=== PATIENT | male | born 1960 | race Two or more races ===

== ENCOUNTER 2018-07-03 14:07 | Inpatient (IN) | payer MEDICARE ==
[~2018-07-03] VITALS: Ht 167.6 cm; Wt 59.0 kg
--- NOTE | ~2018-07-03 | HP ---
PATIENT: KEVIN DASH MEDICAL RECORD: [id number] ACCOUNT: [id number] LOCATION:D. 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 He presented to our procedure center at [facility] [place] and is going to have a HemoSplit catheter placed. He is a [facility] patient and not associated with [facility], so we could not run in our unit at [facility]. We will have to admit him as his potassium was 7.1 and CO2 was 12 indicating metabolic acidosis and uremia. PAST MEDICAL HISTORY: 1. ESRD, on dialysis in [place] with failed access. 2. Hypertension. 3. Hyperphosphatemia. 4. Treated TB. 5. Incomplete database as this is a gentleman from [place] dialysis unit. 6. Hyperlipidemia. 7. Hyperkalemia. 8. Anemia of CKD. 9. Diabetes type 2. PAST SURGICAL HISTORY: Dialysis access placement. SOCIAL HISTORY: He is , unknown immigration status, but does dialyze at [place]. FAMILY HISTORY: Noncontributory. No alcohol or illicit drugs and was a former smoker many years ago. ALLERGIES: GABAPENTIN. PHYSICAL EXAMINATION: VITAL SIGNS: He is 142/72, 72 heart rate, 18 respiratory rate, male, in no respiratory distress. HEENT: Extraocular muscles are intact. Cranial nerves II through XII are intact. LUNGS: Do have decreased breath sounds, otherwise clear. ABDOMEN: Nontender. Dialysis access with no sign of infection. New hemodialysis catheter, tunneled. EXTREMITIES: No clubbing, but positive edema. LABORATORY DATA: His BUN was 173, creatinine greater than 20, CO2 12, potassium 7.1, sodium 139, glucose 99. ASSESSMENT AND PLAN: 1. Uremia. He has had a dialysis access placed. I have already talked with the dialysis team and it would be fast if they are be able to get him down to the dialysis unit room or the ICU. 2. Hyperkalemia. We will give him bicarbonate on admission. 3. Diabetes. We will place him on a sliding scale. I do not have a home medication list. HISTORY AND PHYSICAL [id number] KEVIN DASH 4. Hypertension. We will provide him p.r.n. metoprolol until we can obtain the medication list. 5. Metabolic acidosis secondary to renal failure, noncompliance with dialysis due to loss of dialysis access. 6. Previously treated TB. 7. Hyperlipidemia. We will see if he is on a statin. 8. Secondary hyperparathyroidism. 9. Anemia of CKD. PLAN: Please see orders. TRANSINT:[id number] Voice Confirmation ID: [id number] DOCUMENT ID: [id number] ANIL FELTON MD at 1745 CC: [id number] DICTATION DATE: 07/03/18 1146 LABEL DESIGNER: 07/03/18 1206 ADM IN [place] [id number] [place] [address]
[2018-07-03 15:20] VITALS: BP 132/51; BMI 21.0
[2018-07-03 16:35] LABS: BASOPHILS 0.6 % (0-2); EOSINOPHILS 0.7 % (0-7); IMMATURE GRANULOCYTES 0.6 % (0-5); LYMPHOCYTES 7.5 % (15-50); MCH 30.8 pg (26.0-34.0); MCHC 32.7 g/dL (31.0-37.0); MCV 94.1 fL (80.0-100.0); MEAN PLATELET VOLUME 9.3 fL (7.4-10.4); MONOCYTES 6.5 % (2-11); NEUTROPHILS 84.1 % (40-80); PLATELET COUNT 124 10x3/uL (130-400); RDW 13.7 % (11.5-14.5); WBC 7.2 10x3/uL (4.8-10.8)
[2018-07-03 16:52] LABS: ANION GAP 34.3 mmol/L (8-16); CALCIUM 8.7 mg/dL (8.5-10.1); CARBON DIOXIDE 12.8 mmol/L (21.0-32.0)
[2018-07-03 17:01] LABS: CREATININE - SERUM 29.8 mg/dL (0.6-1.3)
[2018-07-03 17:06] LABS: POTASSIUM - SERUM 8.1 mmol/L (3.5-5.1)
[2018-07-03 17:29] LABS: HEMOGLOBIN 5.2 g/dL (13.5-17.5); RBC 1.69 10x6/uL (4.20-6.10)
[2018-07-03 17:31] LABS: HEMATOCRIT 15.9 % (42.0-54.0)
[2018-07-03 20:00] VITALS: BP 187/76
[2018-07-03 23:04] VITALS: BP 184/81
[2018-07-03 23:20] VITALS: BP 182/82
[2018-07-03 23:35] VITALS: BP 189/81
[2018-07-03 23:50] VITALS: BP 186/78
[2018-07-04] VITALS (11 sets, daily range): BP systolic 154–201; BP diastolic 68–84; Ht 167.6 cm; Wt 59.0 kg
[2018-07-04 06:00] LABS: BASOPHILS 0.5 % (0-2); EOSINOPHILS 3.5 % (0-7); IMMATURE GRANULOCYTES 0.5 % (0-5); LYMPHOCYTES 5.4 % (15-50); MCHC 35.8 g/dL (31.0-37.0); MONOCYTES 13.2 % (2-11); NEUTROPHILS 76.9 % (40-80); PLATELET COUNT 127 10x3/uL (130-400); RDW 15.6 % (11.5-14.5); WBC 5.7 10x3/uL (4.8-10.8)
[2018-07-04 06:12] LABS: PHOSPHOROUS 7.9 mg/dL (2.5-4.9)
[2018-07-04 06:15] LABS: CREATININE - SERUM 16.5 mg/dL (0.6-1.3)
[2018-07-04 06:16] LABS: ANION GAP 20.6 mmol/L (8-16); CARBON DIOXIDE 21.1 mmol/L (21.0-32.0); POTASSIUM - SERUM 4.7 mmol/L (3.5-5.1)
[2018-07-04 06:20] LABS: HEMATOCRIT 25.4 % (42.0-54.0); HEMOGLOBIN 9.1 g/dL (13.5-17.5); MCV 86.4 fL (80.0-100.0); RBC 2.94 10x6/uL (4.20-6.10)
[2018-07-04 16:16] LABS: HEPATITIS C ANTIBODY 0.1 (0.0-0.9)
[2018-07-05] VITALS: BP 165/68
[2018-07-05 04:00] VITALS: BP 145/91
[2018-07-05 05:20] LABS: BASOPHILS 0.6 % (0-2); EOSINOPHILS 3.9 % (0-7); HEMATOCRIT 25.4 % (42.0-54.0); HEMOGLOBIN 8.5 g/dL (13.5-17.5); IMMATURE GRANULOCYTES 0.4 % (0-5); LYMPHOCYTES 6.5 % (15-50); MCHC 33.5 g/dL (31.0-37.0); MCV 86.7 fL (80.0-100.0); MEAN PLATELET VOLUME 9.6 fL (7.4-10.4); MONOCYTES 12.5 % (2-11); NEUTROPHILS 76.1 % (40-80); PLATELET COUNT 128 10x3/uL (130-400); RBC 2.93 10x6/uL (4.20-6.10); RDW 15.3 % (11.5-14.5); WBC 6.9 10x3/uL (4.8-10.8)
[2018-07-05 05:57] LABS: ALBUMIN 2.8 g/dL (3.4-5.0); ANION GAP 20.7 mmol/L (8-16); BILIRUBIN - DIRECT 0.09 mg/dL (0.00-0.30); BILIRUBIN - INDIRECT 0.23 mg/dL (0.00-1.00); BILIRUBIN - TOTAL 0.32 mg/dL (0.2-1.3); CALCIUM 7.9 mg/dL (8.5-10.1); CARBON DIOXIDE 23.4 mmol/L (21.0-32.0); CREATININE - SERUM 19.7 mg/dL (0.6-1.3); POTASSIUM - SERUM 5.1 mmol/L (3.5-5.1); PROTEIN - SERUM 6.1 g/dL (6.4-8.2)
[2018-07-05 06:03] LABS: PHOSPHOROUS 9.1 mg/dL (2.5-4.9)
[2018-07-05 07:54] VITALS: BP 181/72
== END 2018-07-05 16:20 | disposition home or self-care (01) | DRG 640 ==
LOC: D.M2 14:07 → OBSVTIME 14:07 → D.M2 15:54
PROVIDERS: Internal Medicine Nephrology
PROC: 5A1D70Z Performance of Urinary Filtration, Intermittent, Less than 6 Hours Per Day (ICD-10-PCS; principal; 2018-07-03)
DX: E87.5 Hyperkalemia (principal); N18.6 End stage renal disease; I12.0 Hypertensive chronic kidney disease with stage 5 chronic kidney disease or end stage renal disease; N25.81 Secondary hyperparathyroidism of renal origin; Z91.15 Patient's noncompliance with renal dialysis; E11.22 Type 2 diabetes mellitus with diabetic chronic kidney disease; Z99.2 Dependence on renal dialysis; E78.5 Hyperlipidemia, unspecified; D63.1 Anemia in chronic kidney disease; E87.2 Acidosis